=== PATIENT | female | born 1965 | race Two or more races ===

== ENCOUNTER 2021-06-29 23:44 | Inpatient (IN) | payer OTHER ==
[~2021-06-29] VITALS: Ht 167.6 cm
--- NOTE | 2021-06-30 00:02 | NUR ---
SE REALIZA EKG, SE VINCE S/V Y SE UBICA PTE.
--- NOTE | 2021-06-30 00:02 | NUR ---
SE RECIBE PTE ALERTA, ORIENTADA EN RAPHAEL ARVIN ESFERAS. LA MISMA REFIERE DOLOR DE PECHO HACEN DOS CLANCY Y HOY FUERON L[place] MAS CONSTANTES. LA MISMA VERBALIZA QUE CUANDO SIENTE PRESION EN PECHO LE KRISTINA NAUSEAS.
--- NOTE | 2021-06-30 00:28 | NUR ---
PTE FEMENINA ALERTA Y ORIENTADA EN LAS ARVIN ESFERAS ES EVALUADA POR . RN ADITI ORIENTA PTE SOBRE ORDENES DE TX REFIERE COMPRENDER. CONECTA PTE A MONITOR CARDIACO Y OXIMETRIA DE PULSO. EXTRAE MUESTRAS DE LABORATORIO Y CANALIZA VENA BAJO MEDIDAS ASEPTICAS. ADMINISTRA MEDICAMENTOS, BAJO MEDIDAS ASEPTICAS.SE NOTIFICA A PERSONAL DE RADIOLOGIA PARA XRAY. SE SILVIA PTE EN CAMA NIVEL MAS BAJO CON BARANDAS ELEVADAS Y FRENOS COLOCADOS POR SEGURIDAD.
--- NOTE | 2021-06-30 01:43 | NUR ---
SE LE NOTIFICAN TROPONINAS ELVEVADAS A .
--- NOTE | 2021-06-30 01:54 | NUR ---
SE LE NOTIFICA A QUE LUEGO DE TERCERA NITRO PTE REFIERE ALIVIO A DOLOR EN ESCALA EN 2,YESSICA LUEGO DE HÉCTOR RESULTADOS DE LABORATORIO,REEVALUA A PTE Y REAL;KIMBERLY ORDENES MEDICAS,SE ORIENTA A PTE SOBRE ORDEN MEDICA,SE ADMINISTRAN MEDICAMENTOS LOS CUALES TOLERA,SE COLOCA TRIDIL@3ML/HR Y SE COLOCA C/N A 2LTRS,SE MANTIENE A PTE EN OBSERVACION POR CAMBIOS.
--- NOTE | 2021-06-30 05:02 | NUR ---
SE REALIZA TROPONINA Y SE ENVIA A LABORATORIO.
--- NOTE | 2021-06-30 07:11 | NUR ---
SE RECIBE PACIENTE FEMENINA DE 56 ANOS DE EDAD DESPIERTA Y ALERTA EN CAMA OCN BARANDAS ELEVADAS EN POSICION SEMI SENTADA CONECTADA A MONITOR CARDIACO, SATUROMETRIA JESÚS, CANULA NASAL A 2 LTS/MIN/ AREA DE VENOPUNCION PATENTE EN BRAZO DERECHO CONN ANGIO #20 BAJANDO UN TRIDIL 50MG/250ML POR HORA KIT DE EDEMAS, ENROJECIMIENTO Y DOLOR AL TACTO. SE VINCE SIGNOS VITALES, SE ORIENTA A PACIENTE SOBRE MEDIDAS DE SEGURDIAD Y MEDICAMENTOS. PACIENTE REFIERE MEJORIA EN BUTLER CONDICION. SE MANTIENE PACIENTE EN OBSERVACION POR CAMBIOS SIGNIFICATIVOS DENTRO DE BUTLER CONDICION.
--- NOTE | 2021-06-30 08:42 | NUR ---
PACIENTE REFIERE QUE SE ESTA SINTIENDO MAL [place] Y QUE TIENE DOLOR DE LELA. SE LE ORIENTA SOBRE MEDICAMENTO TRIDIL Y RAPHAEL EFECTOS. SE VINCE SIGNOS VITALES. SE REGULA TRIDIL A 6ML POR HORA
== END 2021-07-14 23:10 | disposition left against medical advice (07) | DRG 282 ==
LOC: ER 23:44 → MEDI 06-30 13:04 → MEDJ 06-30 13:04 → MEDI 06-30 15:30
PROVIDERS: ADMIT Internal Medicine; ATTEND Internal Medicine
PROC: B24BYZZ Ultrasonography of Heart with Aorta using Other Contrast (ICD-10-PCS; principal; 2021-06-30)
PROC: 4A12X4Z Monitoring of Cardiac Electrical Activity, External Approach (ICD-10-PCS; 2021-06-30)
DX: I24.9 Acute ischemic heart disease, unspecified (principal); I21.4 Non-ST elevation (NSTEMI) myocardial infarction; Z20.822 Contact with and (suspected) exposure to COVID-19; Z87.891 Personal history of nicotine dependence